=== PATIENT | male | born 1995 | race Caucasian/White ===

== ENCOUNTER 2016-08-04 20:01 | Emergency (ER) | payer BC ==
[2016-08-04] MEDS ORDERED: Ibuprofen TAB* 600 MG PO ONE (20:34)
--- NOTE | 2016-08-04 20:54 | ED ---
Influenza-Like Illness - HPI Summary HPI Summary: 21M presents with cough, sinus congestion, ear pressure, back pain, and sore throat for 3 days. He denies any fever. He states that he has abdominal pain when he coughs. He also admits to SOB when he coughs. He denies any n/v/d/c. He admits to decrease in appetite. He has not taken anything for his symptoms. He states also when he coughs he gets upper back pain and denies any injury. He states brother had strept a couple weeks ago. He denies any known fever but states he does get hot and cold flashes. - History of Current Complaint Chief Complaint: EDGeneral Time Seen by Provider: 08/04/16 20:07 - Allergy/Home Medications Allergies/Adverse Reactions: Allergies Allergy/AdvReac Type Severity Reaction Status Date / Time No Known Allergies Allergy Verified 12/10/15 18:40 PMH/Surg Hx/FS Hx/Imm Hx Cardiovascular History: Denies: Hx Hypertension Respiratory History: Denies: Hx Asthma - Surgical History Surgery Procedure, Year, and Place: LEFT WRIST Infectious Disease History: No Infectious Disease History: Denies: Traveled Outside the [place] in Last 30 Days - Family History Known Family History: Positive: Hypertension - Social History Alcohol Use: Weekly Substance Use Type: Reports: Marijuana Smoking Status (MU): Current Some Day Smoker Type: Cigarettes, eCigarettes Amount Used/How Often: E-CIGS DAILY Review of Systems Negative: Fever Positive: Sore Throat, Ear Ache, Nasal Discharge Negative: Chest Pain Positive: Cough. Negative: Shortness Of Breath Positive: Abdominal Pain - when coughs LLQ. Negative: Vomiting, Diarrhea, Nausea All Other Systems Reviewed And Are Negative: Yes Physical Exam Triage Information Reviewed: Yes Vital Signs On Initial Exam: Initial Vitals Temp Pulse Resp BP Pulse Ox 99.3 F 109 18 175/81 100 08/04/16 20:03 08/04/16 20:03 08/04/16 20:03 08/04/16 20:03 08/04/16 20:03 Vital Signs Reviewed: Yes Appearance: Positive: Well-Appearing Skin: Positive: Warm, Dry Head/Face: Positive: Normal Head/Face Inspection Eyes: Positive: Normal, Conjunctiva Clear ENT: Positive: Normal ENT inspection, Pharynx normal, Nasal congestion, TMs normal, Other - sinus tenderness Neck: Positive: Supple, Nontender, No Lymphadenopathy Respiratory/Lung Sounds: Positive: Clear to Auscultation, Breath Sounds Present Cardiovascular: Positive: Normal, RRR Abdomen Description: Positive: Nontender, Soft Bowel Sounds: Positive: Present - [place] Coma Scale Coma Scale Total: 15 Diagnostics - Vital Signs Vital Signs Temp Pulse Resp BP Pulse Ox 08/04/16 20:30 97 132/70 99 08/04/16 20:23 95 98 08/04/16 20:22 131/70 08/04/16 20:15 99.8 F 91 20 151/73 97 08/04/16 20:03 99.3 F 109 18 175/81 100 - Laboratory Lab Results: Lab Results 08/04/16 Range/Units 20:34 Group A Strep Rapid Negative (Negative) Lab Statement: Any lab studies that have been ordered have been reviewed, and results considered in the medical decision making process. - Radiology chest Xray Interpretation: No Acute Changes Radiology Interpretation Completed By: Radiologist Flu Symptom Course/Dx - Course Course Of Treatment: 21M presents with cold like symptoms: cough with shortness of breath, hot and cold flashes, sore throat, sinus congestion, cough. on exam has sinus congestion and post nasal drip present. chest CTA and abdomen nontender. flu, mono, and chest xray normal. will treat supporatively, patient understands and agrees with plan - Diagnoses Differential Diagnosis/HQI/PQRI: Positive: Influenza, Pneumonia, Upper Respiratory Infection, Other - mono Provider Diagnoses: Upper respiratory infection Discharge - Discharge Plan Condition: Good Disposition: HOME Prescriptions: Albuterol HFA INHALER* [Ventolin HFA Inhaler*] 1 puff INH Q6H PRN #1 mdi PRN Reason: Cough Benzonatate CAP* [Tessalon 100 MG CAP*] 100 mg PO TID #18 cap Patient Education Materials: Upper Respiratory Infection (ED) Referrals: No Primary Care Phys,NOPCP [Primary Care Provider] - Additional Instructions: Use Tessalon three times a day for cough Use intranasal steroid one spray each nostril twice a day Use inhaler up to two puffs every 4-6 hours for cough Use saline in the nose for nasal congestion, can also get Sudafed at pharmacy counter for nasal congestion Use humidifier or place warm bowls of water around the room for cough Take Tylenol or ibuprofen for pain every 6 hours Return to ED if develop any new or worsening symptoms
--- NOTE | 2016-08-04 21:14 | RAD ---
HISTORY: Cough, fever COMPARISONS: None VIEWS: 2: Frontal dual-energy and lateral views of the chest. FINDINGS: CARDIOMEDIASTINAL SILHOUETTE: The cardiomediastinal silhouette is normal. MARÍA: The maría are normal. PLEURA: The costophrenic angles are sharp. No pleural abnormalities are noted. LUNG PARENCHYMA: The lungs are clear. ABDOMEN: The upper abdomen is clear. There is no subphrenic gas. BONES AND SOFT TISSUES: No bone or soft tissue abnormalities are noted. OTHER: None. IMPRESSION: NO ACTIVE CARDIOPULMONARY DISEASE.
[2016-08-04 21:19] LABS: Manual Entry Verification CAR0052; Mono Internal Control QC Line Present
[2016-08-04] MEDS ORDERED: Benzonatate CAP* 100 MG PO ONE (21:40)
[2016-08-04 22:06] VITALS: BP 118/74
== END 2016-08-04 22:04 | disposition home or self-care (01) ==
LOC: ED 20:01
DX: J06.9 Acute upper respiratory infection, unspecified (principal); R10.32 Left lower quadrant pain; R05 Cough; J02.9 Acute pharyngitis, unspecified; M54.9 Dorsalgia, unspecified
CPT/HCPCS: 36415; 71020; 86308; 87502; 87651; 99282; A9270-GY

== ENCOUNTER 2017-07-25 18:24 | Emergency (ER) | payer BC, OTHER ==
[2017-07-25 18:35] VITALS: BP 147/78
--- NOTE | 2017-07-25 20:23 | UC ---
Complaint Male HPI - HPI Summary HPI Summary: 2 days of lower abdominal pain and bloody penile discharge. He also has hematuria and dysuria. Symptoms are worsening. Patient voided just prior to arrival and said the pain was excruciating and brought him to tears. Reports unprotected sex with a woman with both vaginal and anal penetration about 4 weeks ago. Had unprotected sex with a different woman 3 days ago. No fever, no nausea, no back/flank pain. - History of Current Complaint Chief Complaint: UCGI Stated Complaint: COMPLAINT Time Seen by Provider: 07/25/17 19:52 Hx Obtained From: Patient Onset/Duration: Gradual Onset, Lasting Days, Still Present Timing: Constant Severity Initially: Moderate Severity Currently: Severe Pain Intensity: 10 Pain Scale Used: 0-10 Numeric Location: Penis Character: Burning Aggravating Factor(s): Voiding Alleviating Factor(s): Nothing Associated Signs And Symptoms: Positive: Hematuria, Dysuria, Penile Discharge. Negative: Back Pain, Fever, Blood in Stool, Nausea - Allergies/Home Medications Allergies/Adverse Reactions: Allergies Allergy/AdvReac Type Severity Reaction Status Date / Time No Known Allergies Allergy Verified 07/25/17 18:35 PMH/Surg Hx/FS Hx/Imm Hx Previously Healthy: Yes - Surgical History Surgical History: Yes Surgery Procedure, Year, and Place: LEFT WRIST - Family History Known Family History: Positive: Hypertension Family History: KIDNEY STONES - DAD - Social History Alcohol Use: Weekly Substance Use Type: Marijuana Substance Use Comment - Amount & Last Used: 3 times a week Smoking Status (MU): Current Some Day Smoker Type: Cigarettes, eCigarettes Amount Used/How Often: E-CIGS DAILY Review of Systems Constitutional: Negative Respiratory: Negative Cardiovascular: Negative Gastrointestinal: Abdominal Pain Genitourinary: Dysuria, Hematuria, Vaginal/Penile Burning, Vaginal/Penile Discharge All Other Systems Reviewed And Are Negative: Yes Physical Exam Triage Information Reviewed: Yes Appearance: Well-Appearing, Well-Nourished, Pain Distress - MILD Vital Signs: Initial Vital Signs Temp 98.9 F 07/25/17 18:30 Pulse 85 07/25/17 18:30 Resp 18 07/25/17 18:30 BP 147/78 07/25/17 18:30 Pulse Ox 100 07/25/17 18:30 Vital Signs Reviewed: Yes Eyes: Positive: Conjunctiva Clear ENT: Positive: Hearing grossly normal Neck: Positive: Supple Respiratory: Positive: No respiratory distress, No accessory muscle use Cardiovascular: Positive: Pulses Normal Abdomen Description: Positive: Soft, Other: - MILDLT TTP LLQ, SUPRAPUBIC AREA. NO REBOUND OR RIGIDITY. Negative: CVA Tenderness (R), CVA Tenderness (L), Distended, Guarding Male Genital Exam: Positive: Normal Genitalia, Urethral Discharge - BLOODY, Other - SHOTTY BILATERAL INGUINAL LAD. Negative: Epididymal Tenderness, Inguinal Tenderness, Testicular Tenderness (R), Testicular Tenderness (L) Musculoskeletal: Positive: No Edema Neurological: Positive: Alert Psychological: Positive: Age Appropriate Behavior Skin: Negative: rashes Diagnostics - Laboratory Diagnostic Studies Completed/Ordered: URINE DIP SP. GR. 1.030, 2+ PROTEIN, 3+ BLOOD, POSITIVE NITRITES, TRACE LEUKS Complaint Male Course/Dx - Course Course Of Treatment: Patient treated empirically for STI and UTI. Counseled him on safer sex practices. Urine sent for testing for UTI and gonorrhea/ chlamydia. Patient declines HIV and syphilis testing today. [facility]. [place] [facility] [place] fail if symptoms not responding to treatment. - Differential Dx/Diagnosis Provider Diagnoses: 1. PRESUMPTIVE STI TREATMENT. 2. DYSURIA/HEMATURIA Discharge - Sign-Out/Discharge Documenting (check all that apply): Discharge - Discharge Plan Condition: Stable Disposition: HOME Prescriptions: Sulfamethox/Trimethoprim DS* [Bactrim DS 800/160 TAB*] 1 tab PO BID #13 tab Patient Education Materials: Sexually Transmitted Diseases (ED), Urinary Tract Infection in Men (ED) Referrals: No Primary Care Phys,NOPCP [Primary Care Provider] - Additional Instructions: We have treated you for gonorrhea and chlamydia with 250 mg of Rocephin and 1 g of azithromycin. We are also treating you for a urinary tract infection with Bactrim twice daily for 7 days. Your urine has been sent for testing and we will call you with any abnormal results. Abstain from sexual intercourse for at least 7 days. Use condoms in the future to help prevent STIs. Recommend you follow[facility] with [facility] for HIV and syphilis testing. Go [place] [facility] [place] fail if you are not improving with treatment. [facility] Address: [address] [place] [address] CALL THE NUMBER BELOW FOR ASSISTANCE IN ESTABLISHING WITH A PCP An additional resource available to assist in finding the appropriate physician for your health care needs is the [facility] (Kelsie Crawford). You may contact them by calling [phone]. - Billing Disposition and Condition Condition: STABLE Disposition: HOME
[2017-07-25] MEDS ORDERED: Lidocaine 1% MPF* 2 ML VIAL INJ ONE (20:29)
[2017-07-25] MEDS ORDERED: cefTRIAXone VIAL(*) 250 MG VIAL IM ONE (20:29)
[2017-07-25] MEDS ORDERED: Azithromycin TAB* 250 MG PO ONE (20:29)
[2017-07-25] MEDS ORDERED: Sulfamethox/Trimethoprim DS 800/160* TAB PO ONE (20:30)
--- NOTE | 2017-07-27 15:12 | UC ---
- Progress Note Progress Note: urine culture - neg - final No change 07/27/17 [facility] Discharge - Sign-Out/Discharge Documenting (check all that apply): Post-Discharge Follow Up - Discharge Plan Condition: Stable Disposition: HOME Prescriptions: Sulfamethox/Trimethoprim DS* [Bactrim DS 800/160 TAB*] 1 tab PO BID #13 tab Patient Education Materials: Sexually Transmitted Diseases (ED), Urinary Tract Infection in Men (ED) Referrals: No Primary Care Phys,NOPCP [Primary Care Provider] - Additional Instructions: We have treated you for gonorrhea and chlamydia with 250 mg of Rocephin and 1 g of azithromycin. We are also treating you for a urinary tract infection with Bactrim twice daily for 7 days. Your urine has been sent for testing and we will call you with any abnormal results. Abstain from sexual intercourse for at least 7 days. Use condoms in the future to help prevent STIs. Recommend you follow-[facility] with [facility] for HIV and syphilis testing. [place] [facility] [place] fail if you are not improving with treatment. [facility] Address: [address] [place] [address] CALL THE NUMBER BELOW FOR ASSISTANCE IN ESTABLISHING WITH A PCP An additional resource available to assist in finding the appropriate physician for your health care needs is the [facility] (Kelsie Crawford). You may contact them by calling [phone]. - Billing Disposition and Condition Condition: STABLE Disposition: HOME
--- NOTE | 2017-07-28 11:48 | UC ---
- Progress Note Progress Note: I ATTEMPTED TO CALL THE PT BUT HIS PHONE NUMBER HAS RESTRICTIONS ON IT THAT DO NOT ALLOW THE COMPLETION OF THE CALL. URINE CX UNREMARKABLE AND GC/CHLAMYDIA NEG. IF PT STILL SYMPTOMATIC WOULD REFER TO UROLOGY. TO THE ED IF UNABLE TO VOID OR PAIN INTOLERABLE. PLEASE SEND A LETTER - HALI MÉNDEZ MD Discharge - Sign-Out/Discharge Documenting (check all that apply): Post-Discharge Follow Up - Discharge Plan Condition: Stable Disposition: HOME Prescriptions: Sulfamethox/Trimethoprim DS* [Bactrim DS 800/160 TAB*] 1 tab PO BID #13 tab Patient Education Materials: Sexually Transmitted Diseases (ED), Urinary Tract Infection in Men (ED) Referrals: No Primary Care Phys,NOPCP [Primary Care Provider] - Additional Instructions: We have treated you for gonorrhea and chlamydia with 250 mg of Rocephin and 1 g of azithromycin. We are also treating you for a urinary tract infection with Bactrim twice daily for 7 days. Your urine has been sent for testing and we will call you with any abnormal results. Abstain from sexual intercourse for at least 7 days. Use condoms in the future to help prevent STIs. Recommend you follow[facility] with [facility] for HIV and syphilis testing. [place] [facility] [place] fail if you are not improving with treatment. [facility] Address: [address] [place] [address] CALL THE NUMBER BELOW FOR ASSISTANCE IN ESTABLISHING WITH A PCP An additional resource available to assist in finding the appropriate physician for your health care needs is the [facility] (Kelsie Crawford). You may contact them by calling [phone]. - Billing Disposition and Condition Condition: STABLE Disposition: HOME
== END 2017-07-25 21:10 | disposition home or self-care (01) ==
LOC: UCEAST 18:24
DX: R30.0 Dysuria (principal); R31.9 Hematuria, unspecified; R36.9 Urethral discharge, unspecified; R10.30 Lower abdominal pain, unspecified; Z11.3 Encounter for screening for infections with a predominantly sexual mode of transmission; Z72.0 Tobacco use
CPT/HCPCS: 81003; 87086; 87491; 87591; 96372; 99212; A9270-GY; G0463; J0696

== ENCOUNTER 2017-07-28 17:27 | Emergency (ER) | payer OTHER ==
[2017-07-28] MEDS ORDERED: NS 0.9% 1000 ML* 1,000 ML IV ONE (19:08)
[2017-07-28] MEDS ORDERED: Ketorolac INJ* 30 MG/ML 1 ML VIAL IV PUSH ONE (19:08)
[2017-07-28] MEDS ORDERED: Ondansetron INJ* 2 MG/ML VIAL IV ONE (19:08)
[2017-07-28 19:13] LABS: ABS Basophils 0 10^3/ul (0-0.2); ABS Eosinophils 0 10^3/ul (0-0.6); ABS Lymphocytes 1.3 10^3/ul (1.0-4.8); ABS Monocytes 0.4 10^3/ul (0-0.8); ABS Neutrophils 2.6 10^3/ul (1.5-7.7); ABS Nucleated RBC 0 10^3/ul; Eosinophil % 0.9 % (0-6); Hematocrit 41 % (42-52); Hemoglobin 14.4 g/dl (14.0-18.0); Mean Corpuscular HGB Conc 35 g/dl (31-36); Mean Corpuscular Hemoglobin 32 pg (27-31); Mean Corpuscular Volume 91 fL (80-94); Mean Platelet Volume 8.1 um3 (7.4-10.4); Nucleated Red Blood Cells % 0.1; Platelet Count 164 10^3/ul (150-450); Red Blood Count 4.49 10^6/ul (4.0-5.4); Red Cell Distribution Width 12 % (10.5-15); White Blood Count 4.3 10^3/ul (3.5-10.8)
[2017-07-28 19:17] LABS: Urine Appearance Clear; Urine Blood 2+ (Negative); Urine Color Yellow; Urine Ketones Negative (Negative); Urine Protein Negative (Negative); Urine Specific Gravity 1.023 (1.010-1.030); Urine Urobilinogen Negative (Negative)
[2017-07-28 19:26] LABS: EGFR Non-African American 83.8 (>60)
[2017-07-28 20:10] LABS: INR 0.9 (0.77-1.02)
[2017-07-28] MEDS ORDERED: Iohexol 300* (CONTRAST) 10 ML SDV IV ONE (20:22)
--- NOTE | 2017-07-28 21:25 | RAD ---
Indication: Gross hematuria, dysuria. Contrast: Administered 100.0 ml of OMNIPAQUE 300 mg/ml CT of the abdomen and pelvis was performed without and with IV contrast. Delayed excretory images were also obtained. Coronal, sagittal and 3-D reconstructive images were obtained. Lung bases demonstrate no pleural fluid, nodules or masses. Heart demonstrates no pericardial effusion. Liver is normal in size. No focal lesions or intrahepatic ductal dilatation is noted. The gallbladder demonstrates no calcified gallstones. No pericholecystic fluid or wall thickening is noted. The pancreas demonstrates no mass or pancreatic ductal dilatation. Common duct is not dilated. The spleen is normal in size. No adrenal masses noted. The kidneys demonstrate symmetric nephrograms without evidence of filling defects. There is symmetric excretion of both kidneys. There is a cyst in the right kidney upper pole measuring 1.6 cm. No hydronephrosis or hydroureter of either kidney is noted. The urinary bladder demonstrates mild thickening of the urinary bladder wall. This may be due to nondistention and correlation with urinalysis is suggested. Aorta and inferior vena cava are unremarkable. No retroperitoneal lymphadenopathy is noted. The visualized bowel demonstrates no abnormal dilatation. The appendix is visualized and appears normal. The prostate and seminal vesicles are grossly unremarkable. The bony structures are grossly unremarkable. IMPRESSION: Nonspecific wall thickening of the urinary bladder. No evidence of obstructive uropathy is noted. Right renal cyst is present.
--- NOTE | 2017-07-28 21:42 | ED ---
Anup Berrios Stephanie, scribed for Alex Martinez MD on 07/28/17 at 1910 . GI/ HPI - HPI Summary HPI Summary: The pt is a 22 y/o M presenting to the ED with c/o abd pain that began 07/25/17. Symptoms include dysuria, hematuria and rash. The pt denies fever. Aggravating factors include urination. The pt went to previously and tested negative for UTI and STD. The pt states he had unprotected intercourse 2 weeks before onset of pain. He has hx of testicular lumps. - History of Current Complaint Chief Complaint: EDAbdPain Time Seen by Provider: 07/28/17 18:50 Stated Complaint: PENIS BLEEDING Hx Obtained From: Patient Onset/Duration: Started Days Ago - 5, Still Present Timing: Constant Current Severity: Moderate Pain Intensity: 6 Location of Pain: LLQ Additional Locations for Males: Penis Pain Characteristics: Sharp Pain Radiates to: LLQ Associated Signs and Symptoms: Positive: Hematuria, Dysuria, Other: - rash Aggravating Factor(s): Voiding, Urination Alleviating Factor(s): Nothing - Allergy/Home Medications Allergies/Adverse Reactions: Allergies Allergy/AdvReac Type Severity Reaction Status Date / Time No Known Allergies Allergy Verified 07/28/17 17:32 PMH/Surg Hx/FS Hx/Imm Hx Cardiovascular History: Denies: Hx Hypertension Respiratory History: Denies: Hx Asthma Sensory History: Denies: Hx Legally Blind EENT History: Denies: Hx Deafness - Surgical History Surgery Procedure, Year, and Place: LEFT WRIST Infectious Disease History: No Infectious Disease History: Denies: Traveled Outside the [place] in Last 30 Days - Family History Known Family History: Positive: Hypertension Family History: KIDNEY STONES - DAD - Social History Occupation: Employed Part-time Lives: With Family Alcohol Use: Weekly Hx Substance Use: Yes Substance Use Type: Reports: Marijuana Substance Use Comment - Amount & Last Used: 3 times a week Hx Tobacco Use: Yes Smoking Status (MU): Current Some Day Smoker Type: Cigarettes, eCigarettes Amount Used/How Often: E-CIGS DAILY Review of Systems Negative: Fever Positive: Abdominal Pain Positive: dysuria, hematuria Positive: Rash All Other Systems Reviewed And Are Negative: Yes Physical Exam - Summary Physical Exam Summary: Appearance: Well appearing, no pain distress Skin: warm, dry, reflects adequate perfusion Head/face: normal Eyes: EOMI, DIEUDONNE ENT: normal Neck: supple, non-tender Respiratory: CTA, breath sounds present Cardiovascular: RRR, pulses symmetrical Abdomen: non-tender, soft Bowel Sounds: present Musculoskeletal: normal, strength/ROM intact Neuro: normal, sensory motor intact, A&Ox3 Penile Exam:prominent inguinal lymph nodes on L side. No epididymal tenderness, no masses or irregular shape to testes, prominent left inguinal adenopathy, no penile lesions. Triage Information Reviewed: Yes Vital Signs On Initial Exam: Initial Vitals Temp Pulse Resp BP Pulse Ox 98.8 F 84 12 159/79 99 07/28/17 17:29 07/28/17 17:29 07/28/17 17:29 07/28/17 17:29 07/28/17 17:29 Vital Signs Reviewed: Yes Diagnostics - Vital Signs Vital Signs Temp Pulse Resp BP Pulse Ox 07/28/17 17:29 98.8 F 84 12 159/79 99 - Laboratory Lab Results: Lab Results 07/28/17 07/28/17 07/28/17 Range/Units 16:51 16:51 16:51 WBC 4.3 (3.5-10.8) 10^3/ul RBC 4.49 (4.0-5.4) 10^6/ul Hgb 14.4 (14.0-18.0) g/dl Hct 41 L (42-52) % MCV 91 (80-94) fL MCH 32 H (27-31) pg MCHC 35 (31-36) g/dl RDW 12 (10.5-15) % Plt Count 164 (150-450) 10^3/ul MPV 8.1 (7.4-10.4) um3 Neut % (Auto) 59.9 (38-83) % Lymph % (Auto) 30.0 (25-47) % [place] % (Auto) 8.7 H (0-7) % Eos % (Auto) 0.9 (0-6) % Baso % (Auto) 0.5 (0-2) % Absolute Neuts (auto) 2.6 (1.5-7.7) 10^3/ul Absolute Lymphs (auto) 1.3 (1.0-4.8) 10^3/ul Absolute Monos (auto) 0.4 (0-0.8) 10^3/ul Absolute Eos (auto) 0 (0-0.6) 10^3/ul Absolute Basos (auto) 0 (0-0.2) 10^3/ul Absolute Nucleated RBC 0 10^3/ul Nucleated RBC % 0.1 INR (Anticoag Therapy) (0.77-1.02) APTT (26.0-36.3) seconds Sodium 139 (139-145) mmol/L Potassium 3.8 (3.5-5.0) mmol/L Chloride 105 (101-111) mmol/L Carbon Dioxide 28 (22-32) mmol/L Anion Gap 6 (2-11) mmol/L BUN 10 (6-24) mg/dL Creatinine 1.09 (0.67-1.17) mg/dL Est GFR ( Amer) 107.8 (>60) Est GFR (Non-Af Amer) 83.8 (>60) BUN/Creatinine Ratio 9.2 (8-20) Glucose 65 L (70-100) mg/dL Calcium 9.3 (8.6-10.3) mg/dL Total Bilirubin 0.40 (0.2-1.0) mg/dL AST 11 L (13-39) U/L ALT 6 L (7-52) U/L Alkaline Phosphatase 47 (34-104) U/L Total Protein 6.9 (6.4-8.9) g/dL Albumin 4.4 (3.2-5.2) g/dL Globulin 2.5 (2-4) g/dL Albumin/Globulin Ratio 1.8 (1-3) Urine Color Yellow Urine Appearance Clear Urine pH 5.0 (5-9) Ur Specific [place] 1.023 (1.010-1.030) Urine Protein Negative (Negative) Urine Ketones Negative (Negative) Urine Blood 2+ A (Negative) Urine Nitrate Negative (Negative) Urine Bilirubin Negative (Negative) Urine Urobilinogen Negative (Negative) Ur Leukocyte Esterase Trace A (Negative) Urine WBC (Auto) 3+(>20/hpf) A (Absent) Urine RBC (Auto) 3+(>10/hpf) A (Absent) Urine Bacteria Absent (Absent) Urine Glucose Negative (Negative) 07/28/17 Range/Units 19:40 WBC (3.5-10.8) 10^3/ul RBC (4.0-5.4) 10^6/ul Hgb (14.0-18.0) g/dl Hct (42-52) % MCV (80-94) fL MCH (27-31) pg MCHC (31-36) g/dl RDW (10.5-15) % Plt Count (150-450) 10^3/ul MPV (7.4-10.4) um3 Neut % (Auto) (38-83) % Lymph % (Auto) (25-47) % [place] % (Auto) (0-7) % Eos % (Auto) (0-6) % Baso % (Auto) (0-2) % Absolute Neuts (auto) (1.5-7.7) 10^3/ul Absolute Lymphs (auto) (1.0-4.8) 10^3/ul Absolute Monos (auto) (0-0.8) 10^3/ul Absolute Eos (auto) (0-0.6) 10^3/ul Absolute Basos (auto) (0-0.2) 10^3/ul Absolute Nucleated RBC 10^3/ul Nucleated RBC % INR (Anticoag Therapy) 0.90 (0.77-1.02) APTT 34.2 (26.0-36.3) seconds Sodium (139-145) mmol/L Potassium (3.5-5.0) mmol/L Chloride (101-111) mmol/L Carbon Dioxide (22-32) mmol/L Anion Gap (2-11) mmol/L BUN (6-24) mg/dL Creatinine (0.67-1.17) mg/dL Est GFR ( Amer) (>60) Est GFR (Non-Af Amer) (>60) BUN/Creatinine Ratio (8-20) Glucose (70-100) mg/dL Calcium (8.6-10.3) mg/dL Total Bilirubin (0.2-1.0) mg/dL AST (13-39) U/L ALT (7-52) U/L Alkaline Phosphatase (34-104) U/L Total Protein (6.4-8.9) g/dL Albumin (3.2-5.2) g/dL Globulin (2-4) g/dL Albumin/Globulin Ratio (1-3) Urine Color Urine Appearance Urine pH (5-9) Ur Specific [place] (1.010-1.030) Urine Protein (Negative) Urine Ketones (Negative) Urine Blood (Negative) Urine Nitrate (Negative) Urine Bilirubin (Negative) Urine Urobilinogen (Negative) Ur Leukocyte Esterase (Negative) Urine WBC (Auto) (Absent) Urine RBC (Auto) (Absent) Urine Bacteria (Absent) Urine Glucose (Negative) Result Diagrams: 07/28/17 16:51 07/28/17 16:51 Lab Statement: Any lab studies that have been ordered have been reviewed, and results considered in the medical decision making process. Re-Evaluation - Re-Evaluation First Eval Change: Improved - Discomfort resolved with Toradol. Able to urinate without discomfort. No gross blood evident. GIGU Course/Dx - Course Course Of Treatment: Patient had received intramuscular Rocephin and Zithromax in the urgent care center. GC and chlamydia were found to be negative. He had some inflammatory cells in his urine was started on Bactrim. Today he has mostly discomfort with urination and gross hematuria. CT urogram confirmed that there is an area of wall thickening of the bladder consistent with possible cystitis versus mass. The patient is very young and so we will treat presumptively as infection. He does see urology for a prior varicocele and will follow up with them. Continue antibiotic (he is currently on Bactrim), add Pyridium and when necessary ibuprofen. - Diagnoses Differential Diagnoses - Male: Cystitis, Dehydration, Urethritis, Urinary Tract Infection, Other - Bladder mass, renal mass, cystitis, urethral polyp, prostatitis Provider Diagnoses: Gross hematuria, Acute cystitis with hematuria Discharge - Sign-Out/Discharge Documenting (check all that apply): Discharge/Admit/Transfer - Discharge Plan Condition: Improved Disposition: HOME Prescriptions: Phenazopyridine 200 mg (NF) [Pyridium 200 MG tab *] 200 mg PO TID PRN #9 tab PRN Reason: burning with urination Patient Education Materials: Urinary Tract Infection in Men (ED), Hematuria (ED ) Forms: *School Release Referrals: Chidi Rowe MD [Medical Doctor] - Additional Instructions: Drink plenty of fluids. Continue the antibiotic previously prescribed. Ibuprofen or Aleve may help discomfort. Call the urologist to follow up in the morning. Return with fever, vomiting, worse or other concerns as discussed. - Billing Disposition and Condition Condition: IMPROVED Disposition: HOME The documentation as recorded by the Anup anderson Stephanie accurately reflects the service I personally performed and the decisions made by me, Alex Martinez MD.
[2017-07-28 21:59] VITALS: BP 134/79
== END 2017-07-28 22:11 | disposition home or self-care (01) ==
LOC: ED 17:27
DX: N30.01 Acute cystitis with hematuria (principal); N28.1 Cyst of kidney, acquired; Z72.0 Tobacco use
CPT/HCPCS: 36415; 74178; 76377; 80053; 81003; 81015; 85025; 85610; 85730; 87086; 87491; 87591; 96374; 96375; 99284; J1885; J2405; Q9967